=== PATIENT | female | born 1985 | race Caucasian/White ===

== ENCOUNTER 2021-01-28 08:28 | Emergency (ER) | payer SELFPAY ==
[2021-01-28 09:05] LABS: #Eosinphils 0.5 10x3/uL (0.0-0.5); #Monocytes 0.7 10x3/uL (0.0-1.1); #Neutrophils 5.2 10x3/uL (1.5-8.4); %Basophils 0.5 % (0.0-2.0); %Eosinophils 5.9 % (0.0-6.0); %Lymphocytes 19.8 % (18.0-47.0); %Monocytes 8.4 % (0.0-10.0); %Neutrophils 65.1 % (40.0-75.0); Hemoglobin 13.1 g/dL (12.0-15.5); Mean Corpuscular HGB CONC 33.3 g/dL (32.0-36.0); Mean Corpuscular Hemoglobin 30.3 pg (27.0-33.0); Mean Platelet Volume 8.9 fl (7.4-10.4); Platelet Count 467 10x3/uL (150-450); RBC Distribution Width 14.4 % (11.5-14.5); Red Blood Cell (RBC) Count 4.32 10x6/uL (3.90-5.03)
[2021-01-28 09:17] LABS: BHCG - Serum Negative (NEGATIVE); Pregs Control Background? CLEAR/WHITE (CLR/WHITE); Pregs Control Bar Appear? YES (CONTROL BAR)
[2021-01-28 09:25] LABS: ALT (SGPT) 41 U/L (8-55); AST (SGOT) 26 U/L (5-34); Acetaminophen Less than 6.0 mcg/mL (10.0-30.0); Albumin 4.6 g/dL (3.5-5.0); Alcohol Less than 10 mg/dL (Less than 10); Alkaline Phosphatase 90 U/L (40-110); Anion Gap 16 mmol/L (10-20); BUN (Urea Nitrogen) 15 mg/dL (7.0-18.7); Bilirubin, Total 0.4 mg/dL (0.2-1.2); Calc. Creatinine Clearance 0 mL/min (70-130); Calcium 9.8 mg/dL (7.8-10.44); Carbon Dioxide 24 mmol/L (22-29); Chloride 103 mmol/L (98-107); Globulin 2.9 g/dL (2.4-3.5); Glucose 89 mg/dL (70-105); Potassium 4.5 mmol/L (3.5-5.1); Protein, Total 7.5 g/dL (6.0-8.3); Salicylate Less than 8.0 mg/dL (15.0-30.0); Sodium 138 mmol/L (136-145)
[2021-01-28 10:02] LABS: Bilirubin Neg (Negative); Blood, Urine 150 (Negative); Clarity Clear (Clear); Glucose, Urine (Dipstick) Normal (Negative); Ketone, Urine Negative (Negative); Leukocyte 100 (Negative); Nitrite Negative (Negative); Protein, Urine (Dipstick) Negative (Neg-Trace); Urobilinogen Normal mg/dL (Less than 2)
[2021-01-28 10:09] LABS: Amphetamine Detected (NotDetected); Barbiturates Screen Not Detected (NotDetected); Benzodiazepine Screen Not Detected (NotDetected); Cocaine Metabolite Screen Detected (NotDetected); Methadone Not Detected (NotDetected); Methamphetamine Detected (NotDetected); Opiate Screen Not Detected (NotDetected); Oxycodone Screen Not Detected (NotDetected); Phencyclidine (PCP) Detected (NotDetected); THC/Cannabinoid Screen Detected (NotDetected); Tricyclic Screen Not Detected (NotDetected)
[2021-01-28 10:17] LABS: Bacteria/HPF Rare-Few HPF (None Seen)
== END 2021-01-28 10:59 | disposition home or self-care (01) ==
LOC: CSHERS 08:28
DX: F15.10 Other stimulant abuse, uncomplicated (principal); F12.10 Cannabis abuse, uncomplicated; F14.10 Cocaine abuse, uncomplicated; F16.10 Hallucinogen abuse, uncomplicated; F17.210 Nicotine dependence, cigarettes, uncomplicated
CPT/HCPCS: 70450; 80053; 80306; 80307; 81003; 81015; 84703; 85025; 93005; 93010

== ENCOUNTER 2021-01-30 02:19 | Emergency (ER) | payer SELFPAY ==
[2021-01-30 02:50] LABS: #Eosinphils 0.5 10x3/uL (0.0-0.5); #Monocytes 0.6 10x3/uL (0.0-1.1); #Neutrophils 4.2 10x3/uL (1.5-8.4); %Basophils 0.4 % (0.0-2.0); %Eosinophils 6.2 % (0.0-6.0); %Lymphocytes 26.9 % (18.0-47.0); %Monocytes 7.9 % (0.0-10.0); %Neutrophils 58.5 % (40.0-75.0); Hemoglobin 12.2 g/dL (12.0-15.5); Mean Corpuscular HGB CONC 32.5 g/dL (32.0-36.0); Mean Corpuscular Hemoglobin 30.3 pg (27.0-33.0); Mean Corpuscular Volume 93.1 fl (81.6-98.3); Mean Platelet Volume 8.6 fl (7.4-10.4); Platelet Count 388 10x3/uL (150-450); RBC Distribution Width 14.3 % (11.5-14.5); Red Blood Cell (RBC) Count 4.03 10x6/uL (3.90-5.03); White Blood Cell (WBC) Count 7.2 10x3/uL (3.5-10.5)
[2021-01-30 02:59] LABS: ALT (SGPT) 28 U/L (8-55); AST (SGOT) 21 U/L (5-34); Acetaminophen Less than 6.0 mcg/mL (10.0-30.0); Albumin 4.1 g/dL (3.5-5.0); Alcohol Less than 10 mg/dL (Less than 10); Alkaline Phosphatase 75 U/L (40-110); Anion Gap 14 mmol/L (10-20); BUN (Urea Nitrogen) 16 mg/dL (7.0-18.7); Bilirubin, Total 0.3 mg/dL (0.2-1.2); Calc. Creatinine Clearance 0 mL/min (70-130); Calcium 9.4 mg/dL (7.8-10.44); Carbon Dioxide 22 mmol/L (22-29); Chloride 106 mmol/L (98-107); Globulin 2.9 g/dL (2.4-3.5); Glucose 91 mg/dL (70-105); Potassium 3.9 mmol/L (3.5-5.1); Salicylate Less than 8.0 mg/dL (15.0-30.0); Sodium 138 mmol/L (136-145)
[2021-01-30 03:01] LABS: Pregnancy Test - Urine (BHCG) Negative (Negative); Pregu Control Background? CLEAR/WHITE (CLR/WHITE); Pregu Control Bar Appear? YES (CONTROL BAR)
[2021-01-30 03:06] LABS: Amphetamine Detected (NotDetected); Barbiturates Screen Not Detected (NotDetected); Benzodiazepine Screen Not Detected (NotDetected); Cocaine Metabolite Screen Detected (NotDetected); Methadone Not Detected (NotDetected); Methamphetamine Detected (NotDetected); Opiate Screen Not Detected (NotDetected); Oxycodone Screen Not Detected (NotDetected); Phencyclidine (PCP) Detected (NotDetected); THC/Cannabinoid Screen Detected (NotDetected); Tricyclic Screen Not Detected (NotDetected)
== END 2021-01-30 04:43 | disposition home or self-care (01) ==
LOC: CSHERS 02:19
DX: F19.10 Other psychoactive substance abuse, uncomplicated (principal); F17.210 Nicotine dependence, cigarettes, uncomplicated
CPT/HCPCS: 51701; 70450; 80053; 80306; 80307; 81025; 84484; 85025; 93005